=== PATIENT | male | born 1970 | race Caucasian/White ===

== ENCOUNTER 2022-05-15 17:22 | Emergency (ER) | payer MEDICARE, OTHER ==
[~2022-05-15] VITALS: Ht 182.9 cm; Wt 93.0 kg
[2022-05-15] MEDS ORDERED: MORPHINE SULFATE 4 MG/ML SYR/VIAL IV ONE (18:15)
[2022-05-15] MEDS ORDERED: ceFAZolin 1GM/50ML 50 ML IV ONE (18:30)
[2022-05-15] MEDS ORDERED: LIDOCAINE 1% HCL (LOCAL ANESTH.) INJ 20ML MDV ID ONE ×2 (18:30→19:00)
[2022-05-15] MEDS ORDERED: HYDROcodone-ACET 10/325MG TAB PO ONE (21:00)
[2022-05-15] MEDS ORDERED: CEPH-510 PO (21:02)
[2022-05-15] MEDS ORDERED: HYDR-4798 PO (21:02)
[2022-05-15 21:30] VITALS: BP 173/76
== END 2022-05-15 22:04 | disposition home or self-care (01) ==
LOC: ER 17:34
DX: S62.637B Displaced fracture of distal phalanx of left little finger, initial encounter for open fracture (principal); V43.52XA Car driver injured in collision with other type car in traffic accident, initial encounter; Y93.89 Activity, other specified; Y92.89 Other specified places as the place of occurrence of the external cause; Y99.8 Other external cause status
CPT/HCPCS: 73030; 73080; 73130; 96365; 96375; 99285; J0690; J2001; J2270

== ENCOUNTER 2022-06-02 13:50 | Emergency (ER) | payer MEDICAID, MEDICARE ==
[~2022-06-02] VITALS: Ht 180.3 cm; Wt 90.0 kg
[~2022-06-02 13:50] MED LIST: CEPH-510 PO; HYDR-4798 PO
[2022-06-02 14:50] VITALS: BP 111/57
== END 2022-06-02 17:29 | disposition home or self-care (01) ==
LOC: ER 13:50
DX: S61.211D Laceration without foreign body of left index finger without damage to nail, subsequent encounter (principal); S61.213D Laceration without foreign body of left middle finger without damage to nail, subsequent encounter; S61.215D Laceration without foreign body of left ring finger without damage to nail, subsequent encounter; Z79.899 Other long term (current) drug therapy; W23.0XXD Caught, crushed, jammed, or pinched between moving objects, subsequent encounter